=== PATIENT | female | born 2000 | race Hispanic/Latino ===

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

== ENCOUNTER 2020-08-09 15:18 | Emergency (ER) | payer SELFPAY ==
[~2020-08-09] VITALS: Ht 157.5 cm; Wt 59.9 kg
[~2020-08-09 15:18] MED LIST: TRINESSA1 EACH PO
--- OUTSIDE RECORDS SUMMARY | 2020-08-09 16:06 | XMS REPORT | Continuity of Care Document ---
Author Author [facility] Organization [facility] Address [address] [place] [id number] Phone Unavailable Care Team Providers Care [facility] Front Desk Clerk Name Role Phone Unavailable Unavailable Problems Condition Name Condition Details Condition Category Status Onset Date Resolution Date Last Treatment Date Treating Clinician Comments Source Nausea and vomiting Nausea & vomiting Problem Active [facility] Viral infection Viral illness Problem Active [facility] Allergies, Adverse Reactions, Alerts This patient has no known allergies or adverse reactions. Medications Ordered Medication Name Filled Medication Name Start Date Stop Da te Current Medication? Ordering Clinician Indication Dosage Frequency Signature (SIG) Comments Components Source Norgestimate-Ethinyl Estradiol (Trinessa) 1 Each Table t Norgestimate-Ethinyl Estradiol (Trinessa) 1 Each Tablet Yes 1 Yolanda ly [facility] Procedures This patient has no known procedures. Encounters Start Date/Time End Date/Time Encounter Type Admission Type Attendi [facility] Care Department Encounter ID Source 2017-12-27 09:48:00 2017-12-27 12:32:00 Departed Emergency Room [facility] [id number] [facility] Results Test Description Test Time Test Comments Results Result Comments Source Human Chorionic Gonadotropin, Qual 2017-12-27 11:08:00 Test Item Human Chorionic Gonadotropin, Qual (test code = 2118-8) NEGATIVE NEGATIVE [facility] Gyjqs1160-11-99 11:05:00* Test Item Value Reference Range Interpretation Comments Sodium Level (test code = 2951-2) 141 136-145 [facility] Hwpic7362-81-70 11:05:00* Test Item Value Reference Range Interpretation Comments Potassium Level (test code = 2823-3) 3.9 3.5-5.1 [facility]Chloride Odwku0904-30-07 11:05:00* Test Item Value Reference Range Interpretation Comments Chloride Level (test code = 2075-0) 109 98-107 H [facility] HospitalCarbon Dioxide Ctkkk8519-07-42 11:05:00* Test Item Value Reference Range Interpretation Comments Carbon Dioxide Level (test code = 2028-9) 23 22-29 [facility] HospitalAnion Pvr9982-80-24 11:05:00* Test Item Value Reference Range Interpretation Comments Anion Gap (test code = 67855-0) 12.9 8-16 [facility] Urea Ewozkgjv8219-20-84 11:05:00* Test Item Value Reference Range Interpretation Comments Blood Urea Nitrogen (test code = 3094-0) 14 7-26 [facility] HospitalCreatinine2018-01-30 11:05:00* Test Item Value Reference Range Interpretation Comments Creatinine (test code = 2160-0) 0.69 0.57-1.11 [facility]BUN/Creatinine Ucfii7091-70-97 11:05:00* Test Item Value Reference Range Interpretation Comments BUN/Creatinine Ratio (test code = 3097-3) 20 6-25 [facility] HospitalEstimat Glomerular Filtration Rate 2017-12-27 11:05:00* Test Item Value Reference Range Interpretation Comments Estimat Glomerular Filtration Rate (test code = 27126-5) 60- >60 Ranges were taken from the National Kidney Disease Education Program and the [facility] literature.Reference ranges:60 or greater: Zajuoo32-00 ( for 3 consecutive months): Chronic kidney disease 15 or less: Kidney failureMethodist McKinney HospitalGlucose Oiaqs4782-43-01 11:05:00* Test Item Value Reference Range Interpretation Comments Glucose Level (test code = TIS6730) 82 74-118 [facility] HospitalCalcium Kesbp5986-78-54 11:05:00* Test Item Value Reference Range Interpretation Comments Calcium Level (test code = 74030-9) 9.0 8.4-10.2 [facility] HospitalTotal Hfvsvrhjm2598-52-62 11:05:00* Test Item Value Reference Range Interpretation Comments Total Bilirubin (test code = 1975-2) 0.4 0.2-1.2 [facility] HospitalAspartate Amino Transf (AST/SGOT) 2017-12-27 11:05:00* Test Item Value Reference Range Interpretation Comments Aspartate Amino Transf (AST/SGOT) (test code = Aspartate Amino Transf (AST/SGOT)) 17 5-34 [facility] HospitalAlanine Aminotransferase (ALT/SGPT) 2017-12-27 11:05:00* Test Item Value Reference Range Interpretation Comments Alanine Aminotransferase (ALT/SGPT) (test code = 1742-6) 9 0-55 [facility] HospitalTotal Ddkiyjs7930-63-53 11:05:00* Test Item Value Reference Range Interpretation Comments Total Protein (test code = 2885-2) 7.7 6.5-8.1 [facility] HospitalAlbumin2018-01-30 11:05:00* Test Item Value Reference Range Interpretation Comments Albumin (test code = 1751-7) 4.2 3.5-5.0 [facility] HospitalGlobulin2018-01-30 11:05:00* Test Item Value Reference Range Interpretation Comments Globulin (test code = 16976-5) 3.5 2.3-3.5 [facility] HospitalAlbumin/Globulin Cbxpj1956-99-05 11:05:00 * Test Item Value Reference Range Interpretation Comments Albumin/Globulin Ratio (test code = 1759-0) 1.2 0.8-2.0 [facility] HospitalAlkaline Urszdoxwdtm4531-13-70 11:05:00* Test Item Value Reference Range Interpretation Comments Alkaline Phosphatase (test code = 6768-6) 58 40-150 [facility] HospitalWhite Blood Yylnd1773-33-09 10:44:00* Test Item Value Reference Range Interpretation Comments White Blood Count (test code = 6690-2) 5.84 4.8-10.8 [facility] HospitalRed Blood Uesul9573-09-35 10:44:00* Test Item Value Reference Range Interpretation Comments Red Blood Count (test code = 789-8) 4.18 3.6-5.1 [facility] HospitalHemoglobin2018-01-30 10:44:00* Test Item Value Reference Range Interpretation Comments Hemoglobin (test code = 09798-0) 13.1 12.0-16.0 [facility] HospitalHematocrit2018-01-30 10:44:00* Test Item Value Reference Range Interpretation Comments Hematocrit (test code = 4544-3) 39.2 34.2-44.1 [facility] HospitalMean Corpuscular Ebatfn3966-00-44 10:44:00* Test Item Value Reference Range Interpretation Comments Mean Corpuscular Volume (test code = 787-2) 93.8 81-99 [facility] HospitalMean Corpuscular Ipvhqxhwgv5480-17-93 10:44:00* Test Item Value Reference Range Interpretation Comments Mean Corpuscular Hemoglobin (test code = 785-6) 31.3 28-32 [facility] HospitalMean Corpuscular Hemoglobin Concent 2017-12-27 10:44:00* Test Item Value Reference Range Interpretation Comments Mean Corpuscular Hemoglobin Concent (test code = 786-4) 33.4 31-35 [facility] HospitalRed Cell Distribution Inapb2520-93-78 10:44:00* Test Item Value Reference Range Interpretation Comments Red Cell Distribution Width (test code = 26207-8) 12.0 11.7 -14.4 [facility] HospitalPlatelet Ahvlc5628-33-04 10:44:00* Test Item Value Reference Range Interpretation Comments Platelet Count (test code = 777-3) 253 140-360 [facility] HospitalNeutrophils (%) (Auto)2017-12-27 10:44:00 * Test Item Value Reference Range Interpretation Comments Neutrophils (%) (Auto) (test code = 81959-0) 64.5 38.7-80.0 [facility] HospitalLymphocytes (%) (Auto)2017-12-27 10:44:00 * Test Item Value Reference Range Interpretation Comments Lymphocytes (%) (Auto) (test code = 736-9) 28.4 18.0-39.1 [facility] HospitalMonocytes (%) (Auto)2017-12-27 10:44:00* Test Item Value Reference Range Interpretation Comments Monocytes (%) (Auto) (test code = 5905-5) 5.5 4.4-11.3 [facility] HospitalEosinophils (%) (Auto)2017-12-27 10:44:00 * Test Item Value Reference Range Interpretation Comments Eosinophils (%) (Auto) (test code = 713-8) 1.0 0.0-6.0 [facility] HospitalBasophils (%) (Auto)2017-12-27 10:44:00* Test Item Value Reference Range Interpretation Comments Basophils (%) (Auto) (test code = 706-2) 0.3 0.0-1.0 [facility] HospitalIM GRANULOCYTES %2017-12-27 10:44:00* Test Item Value Reference Range Interpretation Comments IM GRANULOCYTES % (test code = IM GRANULOCYTES %) 0.3 0.0- 1.0 [facility] HospitalNeutrophils # (Auto)2017-12-27 10:44:00* Test Item Value Reference Range Interpretation Comments Neutrophils # (Auto) (test code = 751-8) 3.8 2.1-6.9 [facility] HospitalLymphocytes # (Auto)2017-12-27 10:44:00* Test Item Value Reference Range Interpretation Comments Lymphocytes # (Auto) (test code = 46454-2) 1.7 1.0-3.2 [facility] HospitalMonocytes # (Auto)2017-12-27 10:44:00* Test Item Value Reference Range Interpretation Comments Monocytes # (Auto) (test code = 742-7) 0.3 0.2-0.8 [facility] HospitalEosinophils # (Auto)2017-12-27 10:44:00* Test Item Value Reference Range Interpretation Comments Eosinophils # (Auto) (test code = 711-2) 0.1 0.0-0.4 [facility] HospitalBasophils # (Auto)2017-12-27 10:44:00* Test Item Value Reference Range Interpretation Comments Basophils # (Auto) (test code = 704-7) 0.0 0.0-0.1 [facility] HospitalAbsolute Immature Granulocyte (auto 2017-12-27 10:44:00* Test Item Value Reference Range Interpretation Comments Absolute Immature Granulocyte (auto (anthony t code = Absolute Immature Granulocyte (auto) 0.02 0-0.1 [facility] HospitalUrine [id number] 10:40:00* Test Item Value Reference Range Interpretation Comments Urine WBC (test code = 5821-4) 0-5 0-5 [facility] HospitalUrine XEN7618-07-24 10:40:00* Test Item Value Reference Range Interpretation Comments Urine RBC (test code = 08296-2) 0-5 0-5 [facility] HospitalUrine Kefvzxht5593-05-30 10:40:00* Test Item Value Reference Range Interpretation Comments Urine Bacteria (test code = 17409-1) MODERATE NONE H [facility] HospitalUrine Epithelial Fzboe0473-77-29 10:40:00 * Test Item Value Reference Range Interpretation Comments Urine Epithelial Cells (test code = 19930-5) FEW NONE [facility] HospitalUrine Klsyc0729-11-47 10:38:00* Test Item Value Reference Range Interpretation Comments Urine Color (test code = 5778-6) YELLOW YELLOW [facility] HospitalUrine Injpmnn3417-93-14 10:38:00* Test Item Value Reference Range Interpretation Comments Urine Clarity (test code = 61018-2) HAZY CLEAR [facility] HospitalUrine Specific Blinfxr1533-53-42 10:38:00 * Test Item Value Reference Range Interpretation Comments Urine Specific [place] (test code = 5811-5) 1.020 1.010-1.02 5 [facility] HospitalUrine [id number] 10:38:00* Test Item Value Reference Range Interpretation Comments Urine pH (test code = 14077-4) 6.5 5-7 [facility] Leukocyte Czpbgmst1504-82-18 10:38:00* Test Item Value Reference Range Interpretation Comments Urine Leukocyte Esterase (test code = 5799-2) TRACE NEGATIVE H [facility] HospitalUrine Ezatyyv1409-02-82 10:38:00* Test Item Value Reference Range Interpretation Comments Urine Nitrite (test code = 98117-5) NEGATIVE NEGATIVE [facility] HospitalUrine Aajfhvm1867-37-86 10:38:00* Test Item Value Reference Range Interpretation Comments Urine Protein (test code = 5804-0) NEGATIVE NEGATIVE [facility] HospitalUrine Glucose (UA)2017-12-27 10:38:00* Test Item Value Reference Range Interpretation Comments Urine Glucose (UA) (test code = 2349-9) NEGATIVE NEGATIVE [facility] HospitalUrine Ngtrkuq2154-42-18 10:38:00* Test Item Value Reference Range Interpretation Comments Urine Ketones (test code = 42298-2) NEGATIVE NEGATIVE [facility] HospitalUrine Etteaehtouww1612-38-90 10:38:00* Test Item Value Reference Range Interpretation Comments Urine Urobilinogen (test code = 90419-2) 0.2 0.2-1 [facility] HospitalUrine Ychuqfhht9881-42-78 10:38:00* Test Item Value Reference Range Interpretation Comments Urine Bilirubin (test code = 1978-6) NEGATIVE NEGATIVE [facility] HospitalUrine Hpyxt1062-09-76 10:38:00* Test Item Value Reference Range Interpretation Comments Urine Blood (test code = 01541-2) TRACE NEGATIVE H [facility]
--- NOTE | 2020-08-09 16:11 | Emergency Department Note ---
History of Present Illnes History of Present Illness Chief Complaint: Genitourinary History of Present Illness This is a 19 year old female that comes in here for 5-6 day history of left-sided flank pain with hematuria . No dysuria, no polyuria. Patient otherwise with urgency and pain that is moderate to severe in nature. Worse with palpation and range of motion of her spine. Denies any trauma. Patient N, no vomiting. Last menstrual period last week. Historian: Patient Arrival Mode: Car Onset (how long ago): day(s) (5) Location: L flank Quality: ache Radiation: Reports back Severity: moderate Onset quality: gradual Duration (how long): day(s) (5) Progression: worsening Relieving factors: none Exacerbating factors: movement Past Medical/Family History Physician Review I have reviewed the patient's past medical and family history. Any updates have been documented here. Past Medical History Recent Fever: Yes Clinical Suspicion of Infectio: Yes New/Unexplained Change in Ment: No Past Medical History: None Past Surgical History: None Other Last Tetanus: UTD Review of Systems Review of Systems Constitutional: Reports no symptoms EENTM: Reports no symptoms Cardiovascular: Reports no symptoms Respiratory: Reports no symptoms Gastrointestinal: Reports no symptoms Genitourinary: Reports as per HPI Musculoskeletal: Reports as per HPI Integumentary: Reports no symptoms Neurological: Reports no symptoms Psychological: Reports no symptoms Endocrine: Reports no symptoms Hematological/Lymphatic: Reports no symptoms Physical Exam Related Data Allergies: Coded Allergies: No Known Allergies (Unverified , 12/27/17) Triage Vital Signs Vital Signs Date Time Temp Pulse Resp B/P (MAP) Pulse Ox O2 Delivery O2 Flow Rate FiO2 08/09/20 15:40 100.6 97 20 132/104 100 Room Air Physical Exam CONSTITUTIONAL Constitutional: Present well-developed, Present well-nourished HENT HENT: Present normocephalic, Present atraumatic, Present oropharynx clear/moist, Present nose normal HENT L/R: Present left ext ear normal, Present right ext ear normal EYES Eyes: Reports PERRL, Reports conjunctivae normal NECK Neck: Present ROM normal PULMONARY Pulmonary: Present effort normal, Present breath sounds normal CARDIOVASCULAR Cardiovascular: Present regular rhythm, Present heart sounds normal, Present capillary refill normal, Present normal rate GASTROINTESTINAL Abdominal: Present soft, Present nontender, Present bowel sounds normal GENITOURINARY Genitourinary: Present exam deferred SKIN Skin: Present warm, Present dry MUSCULOSKELETAL Musculoskeletal: Present ROM normal, Present other (TTP L lumbar paravertebral musculature) NEUROLOGICAL Neurological: Present alert, Present oriented x 3, Present no gross motor or sensory deficits PSYCHOLOGICAL Psychological: Present mood/affect normal, Present judgement normal Assessment & Plan Medical Decision Making MDM Pt is a 19-year-old female that has a history of flank pain, now with hematuria. We'll rule out renal colic, pyelonephritis, infected stone. We'll send labs urine and a urine culture. Last Vital Signs Date Time Temp Pulse Resp B/P (MAP) Pulse Ox O2 Delivery O2 Flow Rate FiO2 08/09/20 15:40 100.6 97 20 132/104 100 Room Air Home Meds Reported Medications Norgestimate-Ethinyl Estradiol (TRINESSA) 1 Each Tablet, 1 CAP PO DAILY 12/27/17 ROSE MCKINNEY MD Aug 09, 2020 16:11
[2020-08-09] MEDS ORDERED: ACETAMINOPHEN 325 MG TAB PO ONE (16:15)
[2020-08-09] MEDS ORDERED: KETOROLAC TROMETHAMINE 30 MG/ML VIAL IV ONE (16:15)
[2020-08-09 16:19] LABS: BASOPHILS % 0.2 % (0.0-1.0); EOSINOPHILS % 0.1 % (0.0-6.0); HEMATOCRIT 39.7 % (34.2-44.1); HEMOGLOBIN 13.2 g/dL (12.0-16.0); LYMPHOCYTES % 10.8 % (18.0-39.1); MEAN CORPUSCULAR HEMOGLOBIN 30.2 pg (28-32); MEAN CORPUSCULAR HGB CONC 33.2 g/dL (31-35); MEAN CORPUSCULAR VOLUME 90.8 fL (81-99); MONOCYTES # (AUTO) 0.7 (0.2-0.8); MONOCYTES % 7.4 % (4.4-11.3); NEUTROPHILS # (AUTO) 7.6 (2.1-6.9); NEUTROPHILS % 81.3 % (38.7-80.0); PLATELET COUNT 249 x10e3/uL (140-360); RED BLOOD COUNT 4.37 x10e6/uL (3.6-5.1); RED CELL DISTRIBUTION WIDTH 11.6 % (11.7-14.4)
[2020-08-09 16:41] LABS: ALANINE AMINOTRANSFERASE 10 IU/L (0-55); ALBUMIN 5.1 g/dL (3.5-5.0); ALBUMIN/GLOBULIN RATIO 1.6 (0.8-2.0); ALKALINE PHOSPHATASE 62 IU/L (40-150); ANION GAP 20.4 mmol/L (8-16); BLOOD UREA NITROGEN 8 mg/dL (7-26); BUN/CREATININE RATIO 11 (6-25); CALCIUM 9.2 mg/dL (8.4-10.2); CARBON DIOXIDE 18 mmol/L (22-29); CHLORIDE 106 mmol/L (98-107); CREATININE, SERUM 0.76 mg/dL (0.57-1.11); EST GLOMERULAR FILTRATION RATE > 60 ML/MIN (60-); GLUCOSE 78 mg/dL (74-118); POTASSIUM 3.4 mmol/L (3.5-5.1); SODIUM 141 mmol/L (136-145)
[2020-08-09 16:50] LABS: CLARITY,URINE CLOUDY (CLEAR); COLOR,URINE YELLOW (YELLOW); PREGNANCY TEST, URINE NEGATIVE (NEGATIVE)
[2020-08-09 16:52] LABS: BILIRUBIN,URINE NEGATIVE (NEGATIVE); KETONES,URINE 1+ (NEGATIVE); LEUKOCYTE ESTERASE ,URINE 1+ (NEGATIVE); NITRITE,URINE NEGATIVE (NEGATIVE); PROTEIN,URINE DIPSTICK 1+ (NEGATIVE); URINE UROBILINOGEN 0.2 mg/dL (0.2 - 1)
[2020-08-09 17:05] LABS: WBC,URINE (MAN) >50 /HPF (0-5)
[2020-08-09 17:06] LABS: BACTERIA,URINE MANY /HPF; EPITHELIAL CELLS,URINE FEW /LPF; RBC,URINE 21-50 /HPF (0-5); YEAST,URINE FEW
[2020-08-09] MEDS ORDERED: CIPROFLOXACIN 500 MG TAB PO STA (18:09)
--- NOTE | 2020-08-09 18:17 | Diagnostic Imaging Report ---
EXAM: CT Abdomen and Pelvis WITHOUT contrast INDICATION: Left flank pain. COMPARISON: None. TECHNIQUE: Abdomen and pelvis were scanned utilizing a multidetector helical scanner from the lung base to the pubic symphysis without administration of IV contrast. Absence of intravenous contrast decreases sensitivity for detection of focal lesions and vascular pathology. Coronal and sagittal reformations were obtained. Routine protocol was performed. IV CONTRAST: None ORAL CONTRAST: None COMPLICATIONS: None RADIATION DOSE: Total DLP: 299.57 mGy*cm Estimated effective dose: (DLP x 0.015 x size factor) mSv CTDIvol has been reviewed. It is below the limits set by the Radiation Protocol Committee (RPC). Dose modulation, iterative reconstruction, and/or weight based adjustment of the mA/kV was utilized to reduce the radiation dose to as low as reasonably achievable. FINDINGS: LINES and TUBES: None. LOWER THORAX: Unremarkable HEPATOBILIARY: No focal hepatic lesions. No biliary ductal dilation. GALLBLADDER: No radio-opaque stones or sludge. No wall thickening. SPLEEN: No splenomegaly. PANCREAS: No focal masses or ductal dilatation. ADRENALS: No adrenal nodules KIDNEYS/URETERS: No hydronephrosis. No cystic or solid mass lesions. No stones. GI TRACT: No abnormal distention, wall thickening, or evidence of bowel obstruction. Appendix is normal. PELVIC ORGANS/BLADDER: Unremarkable. LYMPH NODES: No lymphadenopathy. VESSELS: Unremarkable. PERITONEUM / RETROPERITONEUM: No free air or fluid. BONES: Unremarkable. SOFT TISSUES: Unremarkable. IMPRESSION: No acute abdominopelvic abnormality identified. Specifically, no obstructive renal or ureteral stones bilaterally. Signed by: Tone Adams MD on 08/09/2020 6:13 PM
== END 2020-08-09 19:01 | disposition home or self-care (01) ==
LOC: ER 15:48
DX: M54.5 Low back pain (principal); R31.9 Hematuria, unspecified
CPT/HCPCS: 36415; 74176; 80053; 81001; 81025; 83605; 85025; 87086; 87186; 99284; J1885

== ENCOUNTER 2020-08-10 08:00 | Emergency (ER) | payer SELFPAY ==
[~2020-08-10] VITALS: Ht 157.5 cm; Wt 59.9 kg
--- OUTSIDE RECORDS SUMMARY | 2020-08-10 08:17 | XMS REPORT | Continuity of Care Document ---
Author Author [facility] t Organization [facility] Address [facility] [address] [place] [address] Phone Unavailable Care Team Providers Care Chief Clerk Name Role Phone NO, PCP PCP Unavailable FRANCIS GOMES Unavailable Problems Condition Name Condition Details Condition Category Status Onset Date Resolution Date Last Treatment Date Treating Clinician Comments Source Nausea and vomiting Nausea & vomiting Problem Active [facility] Viral infection Viral illness Problem [facility] Allergies, Adverse Reactions, Alerts This patient has no known allergies or adverse reactions. Social History Social Habit Start Date Stop Date Quantity Comments Source Sex Assigned At 2000 00:00:00 2000 00:00:00 Female [facility] Medications Ordered Medication Name Filled Medication Name Start Date Stop Da te Current Medication? Ordering Clinician Indication Dosage Frequency Signature (SIG) Comments Components Source Norgestimate-Ethinyl Estradiol (Trinessa) 1 Each TABLE T Norgestimate-Ethinyl Estradiol (Trinessa) 1 Each TABLET Yes 1 Yolanda ly [facility] Vital Signs Vital Name Observation Time Observation Value Comments Source Weight 2020-08-09 15:40:00 132 [lb_av] [facility] BMI (Body Mass Index) 2020-08-09 15:40:00 24.1 kg/m2 [facility] Procedures Procedure Date / Time Performed Performing Clinician Donnie feldman CT of abdomen and pelvis without contrast 2020-08-09 00:00:00 [facility] Plan of Care Planned Activity Planned Date Details Comments Source Instructions Pyelonephritis [facility] Encounters Start Date/Time End Date/Time Encounter Type Admission Type [facility] Facility Care Department Encounter ID Source 2020-08-09 15:48:00 2020-08-09 19:01:00 Departed Emergency Room 1 FRANCIS GOMES [facility] [id number] [facility] 2017-12-27 09:48:00 2017-12-27 12:32:00 Departed Emergency Room [facility] [id number] [facility] Results Test Description Test Time Test Comments Results Result Comments Source CT ABDOMEN/PELVIS WO 2020-08-09 17:56:00 [facility] [address] [address] Patient Name: EN LEMA MR #: [id number] : 2000 Age/Sex: 19/F Req #: [id number] Adm Physician: Ordered by: ROSE MCKINNEY MD Report #: [id number] Location: ER Room/Bed: Procedure: [id number] CT/CT ABDOMEN/PELVIS WO Exam Date: 08/09/20 Exam Time: 1730 REPORT STATUS: Signed EXAM: CT Abdomen and Pelvis WITHOUT contrast INDICATION: Left flank pain. COMPARISON: None. TECHNIQUE: Abdomen and pelvis were scanned utilizing a multidetector helical scanner from the lung base to the pubic symphysis without administration of IV contrast. Absence of intravenous contrast decreases sensitivity for detection of focal lesions and vascular pathology. Coronal and sagittal reformations were obtained. Routine protocol was performed. IV CONTRAST: None ORAL CONTRAST: None COMPLICATIONS: None RADIATION DOSE: Total DLP: 299.57 mGy*cm Estimated effective dose: (DLP x 0.015 x size factor) mSv CTDIvol has been reviewed. It is below the limits set by the Radiation Protocol Committee (RPC). Dose modulation, iterative reconstruction, and/or weight based adjustment of the mA/kV was utilized to reduce the radiation dose to as low as reasonably achievable. FINDINGS: LINES and TUBES: None. LOWER THORAX: Unremarkable HEPATOBILIARY: No focal hepatic lesions. No biliary ductal dilation. GALLBLADDER: No radio-opaque stones or sludge. No wall thickening. SPLEEN: No splenomegaly. PANCREAS: No focal masses or ductal dilatation. ADREN ALS: No adrenal nodules KIDNEYS/URETERS: No hydronephrosis. No cystic or solid mass lesions. No stones. GI TRACT: No abnormal distention, wall thickening, or evidence of bowel obstruction. Appendix is normal. PELVIC ORGANS/BLADDER: Unremarkable. LYMPH NODES: No lymphadenopathy. VESSELS: Unremarkable. PERITONEUM / RETROPERITONEUM: No free air or fluid. BONES: Unremarkable. SOFT TISSUES: Unremarkable. IMPRESSION: No acute abdominopelvic abnormality identified. Specifically, no obstructive renal or ureteral stones bilaterally. Signed by: Gloria Cartagena MD on 08/09/2020 6:13 PM Dictated By: GLORIA CARTAGENA MD 12 Transcribed By: WINSTON on 08/09/201812 COPY TO: ROSE MCKINNEY MD Fluoroscopic procedure less than one hour duration 2020-07-29 2 16:10:00 Test Item Lactic Acid Level (test code = Lactic Acid Level) 1.4 0.5- 2.0 [facility] leukocytes automated count (number/volume)2020-08-09 15:57:00* Test Item Value Reference Range Interpretation Comments White Blood Count (test code = 6690-2) 9.34 4.8-10.8 [facility] CenterBlood erythrocytes automated count (number/volume)2020-08-09 15:57:00* Test Item Value Reference Range Interpretation Comments Red Blood Count (test code = 789-8) 4.37 3.6-5.1 [facility] CenterBlood hemoglobin measurement (moles/volume)2020-08-09 15:57:00* Test Item Value Reference Range Interpretation Comments Hemoglobin (test code = 09652-7) 13.2 12.0-16.0 [facility] CenterAutomated blood hematocrit (volume fraction)2020-08-09 15:57:00* Test Item Value Reference Range Interpretation Comments Hematocrit (test code = 4544-3) 39.7 34.2-44.1 [facility] CenterAutomated erythrocyte mean corpuscular csfdmg0111-80-78 15:57:00* Test Item Value Reference Range Interpretation Comments Mean Corpuscular Volume (test code = 787-2) 90.8 81-99 [facility] CenterAutomated erythrocyte mean corpuscular hemoglobin (mass per erythrocyte)2020-08-09 15:57:00* Test Item Value Reference Range Interpretation Comments Mean Corpuscular Hemoglobin (test code = 785-6) 30.2 28-32 [facility] CenterAutomated erythrocyte mean corpuscular hemoglobin concentration measurement (mass/volume)2020-08-09 15:57:00* Test Item Value Reference Range Interpretation Comments Mean Corpuscular Hemoglobin Concent (test code = 786-4) 33.2 31-35 [facility] CenterRDW SpwVu-Jrf2636-18-12 15:57:00* Test Item Value Reference Range Interpretation Comments Red Cell Distribution Width (test code = 77186-9) 11.6 11.7 -14.4 [facility] CenterAutomated blood platelet count (count/volume)2020-08-09 15:57:00* Test Item Value Reference Range Interpretation Comments Platelet Count (test code = 777-3) 249 140-360 [facility] CenterAutcommunity healthed blood segmented neutrophil count as percentage of total ziocxpugql7687-65-11 15:57:00* Test Item Value Reference Range Interpretation Comments Neutrophils (%) (Auto) (test code = 35732-4) 81.3 38.7-80.0 [facility] CenterAutomated blood lymphocyte count as percentage ot total xspdqjvnft5949-61-72 15:57:00* Test Item Value Reference Range Interpretation Comments Lymphocytes (%) (Auto) (test code = 736-9) 10.8 18.0-39.1 [facility] CenterAutomated blood monocyte count as percentage of total ayxqcsyvef0275-97-95 15:57:00* Test Item Value Reference Range Interpretation Comments Monocytes (%) (Auto) (test code = 5905-5) 7.4 4.4-11.3 [facility] CenterAutomated blood eosinophil count as percentage of total jlkzvwymkp0151-24-77 15:57:00* Test Item Value Reference Range Interpretation Comments Eosinophils (%) (Auto) (test code = 713-8) 0.1 0.0-6.0 [facility] CenterAutomated blood basophil count as percentage of total sigotirray8169-52-37 15:57:00* Test Item Value Reference Range Interpretation Comments Basophils (%) (Auto) (test code = 706-2) 0.2 0.0-1.0 [facility] CenterFluoroscopic procedure less than one hour trdvcvlu0832-29-44 15:57:00* Test Item Value Reference Range Interpretation Comments IM GRANULOCYTES % (test code = IM GRANULOCYTES %) 0.2 0.0- 1.0 [facility] CenterAutomated blood neutrophil count 2020-08-09 15:57:00* Test Item Value Reference Range Interpretation Comments Neutrophils # (Auto) (test code = 751-8) 7.6 2.1-6.9 [facility] CenterBlood lymphocytes count (number/volume) 2020-08-09 15:57:00* Test Item Value Reference Range Interpretation Comments Lymphocytes # (Auto) (test code = 98422-4) 1.0 1.0-3.2 [facility] CenterBlood monocytes automated count (number/volume)2020-08-09 15:57:00* Test Item Value Reference Range Interpretation Comments Monocytes # (Auto) (test code = 742-7) 0.7 0.2-0.8 [facility] CenterAutomated blood eosinophil count 2020-08-09 15:57:00* Test Item Value Reference Range Interpretation Comments Eosinophils # (Auto) (test code = 711-2) 0.0 0.0-0.4 [facility] CenterAutomated blood basophil count (count/volume)2020-08-09 15:57:00* Test Item Value Reference Range Interpretation Comments Basophils # (Auto) (test code = 704-7) 0.0 0.0-0.1 [facility] CenterFluoroscopic procedure less than one hour fmuudvfy2810-07-65 15:57:00* Test Item Value Reference Range Interpretation Comments Absolute Immature Granulocyte (auto (anthony t code = Absolute Immature Granulocyte (auto) 0.02 0-0.1 [facility] plasma sodium measurement (moles/volume)2020-08-09 15:57:00* Test Item Value Reference Range Interpretation Comments Sodium Level (test code = 2951-2) 141 136-145 [facility] Hospitalerum or plasma potassium measurement (moles/volume)2020-08-09 15:57:00* Test Item Value Reference Range Interpretation Comments Potassium Level (test code = 2823-3) 3.4 3.5-5.1 [facility] Hospitalerum or plasma chloride measurement (moles/volume)2020-08-09 15:57:00* Test Item Value Reference Range Interpretation Comments Chloride Level (test code = 2075-0) 106 98-107 [facility] Hospitalerum or plasma carbon dioxide, total measurement (moles/volume)2020-08-09 15:57:00* Test Item Value Reference Range Interpretation Comments Carbon Dioxide Level (test code = 2028-9) 18 22-29 [facility] Hospitalerum or plasma anion zxg2112-80-12 15:57:00* Test Item Value Reference Range Interpretation Comments Anion Gap (test code = 39320-9) 20.4 8-16 [facility] Hospitalerum or plasma urea nitrogen measurement (mass/volume)2020-08-09 15:57:00* Test Item Value Reference Range Interpretation Comments Blood Urea Nitrogen (test code = 3094-0) 8 7-26 [facility] Hospitalerum or plasma creatinine measurement (mass/volume)2020-08-09 15:57:00* Test Item Value Reference Range Interpretation Comments Creatinine (test code = 2160-0) 0.76 0.57-1.11 [facility] Hospitalerum or plasma urea nitrogen/creatinine mass hxlyb0057-44-16 15:57:00* Test Item Value Reference Range Interpretation Comments BUN/Creatinine Ratio (test code = 3097-3) 11 6-25 [facility] CenterEstimated glomerular filtration rate (GFR) tbmjbxbglevmi9099-32-05 15:57:00* Test Item Value Reference Range Interpretation Comments Estimat Glomerular Filtration Rate (test code = 908143756) > 60 >60 Ranges were taken from the National Kidney Disease Education Program and the [facility] literature.Reference ranges:60 or greater: Xhsiuf47-73 ( for 3 consecutive months): Chronic kidney disease 15 or less: Kidney failureDell Children's Medical CenterGlucose fxbzrzaarvg9928-33-23 15:57:00* Test Item Value Reference Range Interpretation Comments Glucose Level (test code = AWP3748) 78 74-118 [facility] Hospitalerum or plasma calcium measurement (mass/volume)2020-08-09 15:57:00* Test Item Value Reference Range Interpretation Comments Calcium Level (test code = 69974-6) 9.2 8.4-10.2 [facility] Hospitalerum or plasma total bilirubin measurement (mass/volume)2020-08-09 15:57:00* Test Item Value Reference Range Interpretation Comments Total Bilirubin (test code = 1975-2) 0.9 0.2-1.2 [facility] CenterFluoroscopic procedure less than one hour pjklmoav4091-27-22 15:57:00* Test Item Value Reference Range Interpretation Comments Aspartate Amino Transf (AST/SGOT) (test code = Aspartate Amino Transf (AST/SGOT)) 16 5-34 [facility] Hospitalerum or plasma alanine aminotransferase measurement (enzymatic activity/volume)2020-08-09 15:57:00* Test Item Value Reference Range Interpretation Comments Alanine Aminotransferase (ALT/SGPT) (test code = 1742-6) 10 0-55 [facility] Hospitalerum or plasma protein measurement (mass/volume)2020-08-09 15:57:00* Test Item Value Reference Range Interpretation Comments Total Protein (test code = 2885-2) 8.3 6.5-8.1 [facility] Hospitalerum or plasma albumin measurement (mass/volume)2020-08-09 15:57:00* Test Item Value Reference Range Interpretation Comments Albumin (test code = 1751-7) 5.1 3.5-5.0 [facility] CenterPlasma globulin measurement (mass/volume) 2020-08-09 15:57:00* Test Item Value Reference Range Interpretation Comments Globulin (test code = 62117-2) 3.2 2.3-3.5 [facility] Hospitalerum or plasma albumin/globulin mass psnqb8212-54-29 15:57:00* Test Item Value Reference Range Interpretation Comments Albumin/Globulin Ratio (test code = 1759-0) 1.6 0.8-2.0 [facility] Hospitalerum or plasma alkaline phosphatase measurement (enzymatic activity/volume)2020-08-09 15:57:00* Test Item Value Reference Range Interpretation Comments Alkaline Phosphatase (test code = 6768-6) 62 40-150 [facility] CenterUrine color nlelffdsijtnf7529-58-68 15:46:00* Test Item Value Reference Range Interpretation Comments Urine Color (test code = 5778-6) YELLOW YELLOW [facility] CenterUrine dlodsvr8667-09-01 15:46:00* Test Item Value Reference Range Interpretation Comments Urine Clarity (test code = 97529-4) CLOUDY CLEAR [facility] Hospitalpecific gravity of Urine by Test strip 2020-08-09 15:46:00* Test Item Value Reference Range Interpretation Comments Urine Specific [place] (test code = 5811-5) 1.025 1.010-1.02 5 [facility] CenterUrine pH measurement by automated test pmctv6565-62-23 15:46:00* Test Item Value Reference Range Interpretation Comments Urine pH (test code = 48636-9) 5.5 5-7 [facility] CenterUrine leukocyte esterase detection by dlifnkrl0900-43-64 15:46:00* Test Item Value Reference Range Interpretation Comments Urine Leukocyte Esterase (test code = 5799-2) 1+ NEGATIVE [facility] CenterUrine nitrite ddckmszmd6738-08-88 15:46:00* Test Item Value Reference Range Interpretation Comments Urine Nitrite (test code = 05003-2) NEGATIVE NEGATIVE [facility] CenterUrine protein measurement by test strip (mass/volume)2020-08-09 15:46:00* Test Item Value Reference Range Interpretation Comments Urine Protein (test code = 5804-0) 1+ NEGATIVE [facility] CenterUrine glucose osgvzmcyb6314-08-28 15:46:00* Test Item Value Reference Range Interpretation Comments Urine Glucose (UA) (test code = 2349-9) NEGATIVE NEGATIVE [facility] CenterUrine ketones detection by automated test hdrqx6732-97-10 15:46:00* Test Item Value Reference Range Interpretation Comments Urine Ketones (test code = 24205-2) 1+ NEGATIVE [facility] CenterUrine urobilinogen measurement by test strip (mass/volume)2020-08-09 15:46:00* Test Item Value Reference Range Interpretation Comments Urine Urobilinogen (test code = 49322-1) 0.2 0.2-1 [facility] CenterUrine total bilirubin measurement (mass/volume)2020-08-09 15:46:00* Test Item Value Reference Range Interpretation Comments Urine Bilirubin (test code = 1978-6) NEGATIVE NEGATIVE [facility] CenterUrine erythrocytes abwbgypru8869-13-45 15:46:00* Test Item Value Reference Range Interpretation Comments Urine Blood (test code = 20687-8) 2+ NEGATIVE [facility] CenterAutomated urine sediment leukocyte count by microscopy (number/high power field)2020-08-09 15:46:00* Test Item Value Reference Range Interpretation Comments Urine WBC (test code = 5821-4) >50 0-5 [facility] CenterErythrocytes detection in urine sediment by light prhppbnwit8235-54-92 15:46:00* Test Item Value Reference Range Interpretation Comments Urine RBC (test code = 90527-2) 21-50 0-5 [facility] CenterBacteria detection in urine sediment by light bwdrdovluk8161-07-26 15:46:00* Test Item Value Reference Range Interpretation Comments Urine Bacteria (test code = 98731-6) MANY NONE [facility] CenterEpithelial cells detection in urine sediment by light ptdyklqlyf0394-74-60 15:46:00* Test Item Value Reference Range Interpretation Comments Urine Epithelial Cells (test code = 13677-0) FEW NONE [facility] CenterYeast detection in urine sediment by light aheddgwrrl0467-29-23 15:46:00* Test Item Value Reference Range Interpretation Comments Urine Yeast (test code = 83689-0) FEW NONE [facility] CenterUrine human chorionic gonadotropin (hCG) xqvpztuxq0054-16-71 15:46:00* Test Item Value Reference Range Interpretation Comments Urine Test (test code = 2106-3) NEGATIVE NEGATIVE [facility] CenterHuman Chorionic Gonadotropin, Qual 2017-12-27 11:08:00* Test Item Value Reference Range Interpretation Comments Human Chorionic Gonadotropin, Qual (test code = 2118-8) NEGATIVE NEGATIVE [facility] Hospitalodium Itnge6958-09-86 11:05:00* Test Item Value Reference Range Interpretation Comments Sodium Level (test code = 2951-2) 141 136-145 [facility] CenterPotassium Rtluj1085-72-27 11:05:00* Test Item Value Reference Range Interpretation Comments Potassium Level (test code = 2823-3) 3.9 3.5-5.1 [facility] CenterChloride Bxpub4103-99-87 11:05:00* Test Item Value Reference Range Interpretation Comments Chloride Level (test code = 2075-0) 109 98-107 H [facility] CenterCarbon Dioxide Ppukw5851-41-29 11:05:00* Test Item Value Reference Range Interpretation Comments Carbon Dioxide Level (test code = 2028-9) 23 22-29 [facility] CenterAnion Xzy7156-55-28 11:05:00* Test Item Value Reference Range Interpretation Comments Anion Gap (test code = 72014-2) 12.9 8-16 [facility] CenterBlood Urea Nruqwgxa8126-03-23 11:05:00* Test Item Value Reference Range Interpretation Comments Blood Urea Nitrogen (test code = 3094-0) 14 7-26 [facility] CenterCreatinine2018-01-30 11:05:00* Test Item Value Reference Range Interpretation Comments Creatinine (test code = 2160-0) 0.69 0.57-1.11 [facility] CenterBUN/Creatinine Katvp2513-19-54 11:05:00* Test Item Value Reference Range Interpretation Comments BUN/Creatinine Ratio (test code = 3097-3) 20 6-25 [facility] CenterEstimat Glomerular Filtration Rate 2017-12-27 11:05:00* Test Item Value Reference Range Interpretation Comments Estimat Glomerular Filtration Rate (test code = 42858-1) 60- >60 Ranges were taken from the National Kidney Disease Education Program and the [facility] Foundation literature.Reference ranges:60 or greater: Vdmbll96-65 ( for 3 consecutive months): Chronic kidney disease 15 or less: Kidney failureDell Children's Medical CenterGlucose Fixrz8871-10-79 11:05:00* Test Item Value Reference Range Interpretation Comments Glucose Level (test code = HWP5411) 82 74-118 [facility] CenterCalcium Hnycm1556-98-20 11:05:00* Test Item Value Reference Range Interpretation Comments Calcium Level (test code = 31679-7) 9.0 8.4-10.2 [facility] CenterTotal Whxmfpdsn1497-00-86 11:05:00* Test Item Value Reference Range Interpretation Comments Total Bilirubin (test code = 1975-2) 0.4 0.2-1.2 [facility] CenterAspartate Amino Transf (AST/SGOT) 2017-12-27 11:05:00* Test Item Value Reference Range Interpretation Comments Aspartate Amino Transf (AST/SGOT) (test code = Aspartate Amino Transf (AST/SGOT)) 17 5-34 [facility] CenterAlanine Aminotransferase (ALT/SGPT) 2017-12-27 11:05:00* Test Item Value Reference Range Interpretation Comments Alanine Aminotransferase (ALT/SGPT) (test code = 1742-6) 9 0-55 [facility] CenterTotal Hvmtpyx1946-70-80 11:05:00* Test Item Value Reference Range Interpretation Comments Total Protein (test code = 2885-2) 7.7 6.5-8.1 [facility] CenterAlbumin2018-01-30 11:05:00* Test Item Value Reference Range Interpretation Comments Albumin (test code = 1751-7) 4.2 3.5-5.0 [facility] CenterGlobulin2018-01-30 11:05:00* Test Item Value Reference Range Interpretation Comments Globulin (test code = 50062-1) 3.5 2.3-3.5 [facility] CenterAlbumin/Globulin Lqqbc3388-32-03 11:05:00 * Test Item Value Reference Range Interpretation Comments Albumin/Globulin Ratio (test code = 1759-0) 1.2 0.8-2.0 [facility] CenterAlkaline Sfmjpvmbkca5332-27-70 11:05:00* Test Item Value Reference Range Interpretation Comments Alkaline Phosphatase (test code = 6768-6) 58 40-150 [facility] CenterWhite Blood Bakhr3934-30-74 10:44:00* Test Item Value Reference Range Interpretation Comments White Blood Count (test code = 6690-2) 5.84 4.8-10.8 [facility] CenterRed Blood Uaqlx5001-35-30 10:44:00* Test Item Value Reference Range Interpretation Comments Red Blood Count (test code = 789-8) 4.18 3.6-5.1 [facility] CenterHemoglobin2018-01-30 10:44:00* Test Item Value Reference Range Interpretation Comments Hemoglobin (test code = 56427-0) 13.1 12.0-16.0 [facility] CenterHematocrit2018-01-30 10:44:00* Test Item Value Reference Range Interpretation Comments Hematocrit (test code = 4544-3) 39.2 34.2-44.1 [facility] CenterMean Corpuscular Ndnoyt8072-19-54 10:44:00* Test Item Value Reference Range Interpretation Comments Mean Corpuscular Volume (test code = 787-2) 93.8 81-99 [facility] CenterMean Corpuscular Ldkawwevnx1223-99-17 10:44:00* Test Item Value Reference Range Interpretation Comments Mean Corpuscular Hemoglobin (test code = 785-6) 31.3 28-32 [facility] CenterMean Corpuscular Hemoglobin Concent 2017-12-27 10:44:00* Test Item Value Reference Range Interpretation Comments Mean Corpuscular Hemoglobin Concent (test code = 786-4) 33.4 31-35 [facility] CenterRed Cell Distribution Uzcwj9681-61-71 10:44:00* Test Item Value Reference Range Interpretation Comments Red Cell Distribution Width (test code = 74167-4) 12.0 11.7 -14.4 [facility] CenterPlatelet Txkya0544-90-63 10:44:00* Test Item Value Reference Range Interpretation Comments Platelet Count (test code = 777-3) 253 140-360 [facility] CenterNeutrophils (%) (Auto)2017-12-27 10:44:00 * Test Item Value Reference Range Interpretation Comments Neutrophils (%) (Auto) (test code = 39810-4) 64.5 38.7-80.0 [facility] CenterLymphocytes (%) (Auto)2017-12-27 10:44:00 * Test Item Value Reference Range Interpretation Comments Lymphocytes (%) (Auto) (test code = 736-9) 28.4 18.0-39.1 [facility] CenterMonocytes (%) (Auto)2017-12-27 10:44:00* Test Item Value Reference Range Interpretation Comments Monocytes (%) (Auto) (test code = 5905-5) 5.5 4.4-11.3 [facility] CenterEosinophils (%) (Auto)2017-12-27 10:44:00 * Test Item Value Reference Range Interpretation Comments Eosinophils (%) (Auto) (test code = 713-8) 1.0 0.0-6.0 [facility] CenterBasophils (%) (Auto)2017-12-27 10:44:00* Test Item Value Reference Range Interpretation Comments Basophils (%) (Auto) (test code = 706-2) 0.3 0.0-1.0 [facility] CenterIM GRANULOCYTES %2017-12-27 10:44:00* Test Item Value Reference Range Interpretation Comments IM GRANULOCYTES % (test code = IM GRANULOCYTES %) 0.3 0.0- 1.0 [facility] CenterNeutrophils # (Auto)2017-12-27 10:44:00* Test Item Value Reference Range Interpretation Comments Neutrophils # (Auto) (test code = 751-8) 3.8 2.1-6.9 [facility] CenterLymphocytes # (Auto)2017-12-27 10:44:00* Test Item Value Reference Range Interpretation Comments Lymphocytes # (Auto) (test code = 68244-4) 1.7 1.0-3.2 [facility] CenterMonocytes # (Auto)2017-12-27 10:44:00* Test Item Value Reference Range Interpretation Comments Monocytes # (Auto) (test code = 742-7) 0.3 0.2-0.8 [facility]2017-12-27 10:44:00* Test Item Value Reference Range Interpretation Comments Eosinophils # (Auto) (test code = 711-2) 0.1 0.0-0.4 [facility] ([facility])2017-12-27 10:44:00* Test Item Value Reference Range Interpretation Comments Basophils # (Auto) (test code = 704-7) 0.0 0.0-0.1 [facility] Granulocyte (auto 2017-12-27 10:44:00* Test Item Value Reference Range Interpretation Comments Absolute Immature Granulocyte (auto (anthony t code = Absolute Immature Granulocyte (auto) 0.02 0-0.1 [facility] [id number] 10:40:00* Test Item Value Reference Range Interpretation Comments Urine WBC (test code = 5821-4) 0-5 0-5 [facility] [id number] 10:40:00* Test Item Value Reference Range Interpretation Comments Urine RBC (test code = 16286-8) 0-5 0-5 [facility] [id number] 10:40:00* Test Item Value Reference Range Interpretation Comments Urine Bacteria (test code = 35144-3) MODERATE NONE [facility] Epithelial [id number] 10:40:00 * Test Item Value Reference Range Interpretation Comments Urine Epithelial Cells (test code = 12564-6) FEW NONE [facility] [id number] 10:38:00* Test Item Value Reference Range Interpretation Comments Urine Color (test code = 5778-6) YELLOW YELLOW [facility] [id number] 10:38:00* Test Item Value Reference Range Interpretation Comments Urine Clarity (test code = 29465-7) HAZY CLEAR [facility] Specific [id number] 10:38:00 * Test Item Value Reference Range Interpretation Comments Urine Specific [place] (test code = 5811-5) 1.020 1.010-1.02 5 [facility] [id number] 10:38:00* Test Item Value Reference Range Interpretation Comments Urine pH (test code = 24422-1) 6.5 5-7 [facility] Leukocyte [id number] 10:38:00* Test Item Value Reference Range Interpretation Comments Urine Leukocyte Esterase (test code = 5799-2) TRACE NEGATIVE H [facility] [id number] 10:38:00* Test Item Value Reference Range Interpretation Comments Urine Nitrite (test code = 33656-6) NEGATIVE NEGATIVE [facility] [id number] 10:38:00* Test Item Value Reference Range Interpretation Comments Urine Protein (test code = 5804-0) NEGATIVE NEGATIVE [facility] Glucose (UA)2017-12-27 10:38:00* Test Item Value Reference Range Interpretation Comments Urine Glucose (UA) (test code = 2349-9) NEGATIVE NEGATIVE [facility] [id number] 10:38:00* Test Item Value Reference Range Interpretation Comments Urine Ketones (test code = 15152-5) NEGATIVE NEGATIVE [facility] [id number] 10:38:00* Test Item Value Reference Range Interpretation Comments Urine Urobilinogen (test code = 50037-3) 0.2 0.2-1 [facility] [id number] 10:38:00* Test Item Value Reference Range Interpretation Comments Urine Bilirubin (test code = 1978-6) NEGATIVE NEGATIVE [facility] [id number] 10:38:00* Test Item Value Reference Range Interpretation Comments Urine Blood (test code = 96461-8) TRACE NEGATIVE H [facility]
--- NOTE | 2020-08-10 08:22 | Emergency Department Note ---
History of Present Illnes History of Present Illness Chief Complaint: Genitourinary History of Present Illness This is a 19 year old female PATIENT IN FROM HOME WITH COMPLAINTS OF LEFT FLANK PAIN AND BLOOD IN URINE. PATIENT SEEN HERE YESTERDAY FOR SAME, DX WITH A KIDNEY INFECTION. PATIENT STATES THAT SHE WAS UNABLE TO GET HER PRESCRIPTION FILLED, THAT THE PHARMACY STATED THAT IT WOULD NOT BE READY UNTIL 2 PM TODAY. PATIENT GIVEN 1 DOSE OF ORAL ABX YESTERDAY IN THE ER YESTERDAY. PATIENT FEBRILE IN TRIAGE, STATES HAS NOT TAKEN ANY MOTRIN OR TYLENOL. PATIENT ALERT AND ORIENTED, RESP EVEN AND NONLABORED, APPEARS IN NO DISTRESS. CAME BACK TODAY BECAUSE OF FEVER AND NOT FEELING ANY BETTER YET. +NAUSEA, NO VOMITING Historian: Patient Arrival Mode: Car Onset (how long ago): day(s) (6) Location: LEFT FLANK Quality: PAIN Radiation: Reports non-radiation Severity: moderate Onset quality: gradual Timing of current episode: constant Progression: unchanged Chronicity: new Context: Denies recent illness Relieving factors: none Exacerbating factors: none Associated symptoms: Reports fever/chills, Reports malaise, Reports other (NAUSEA) Treatments prior to arrival: none Past Medical/Family History Physician Review I have reviewed the patient's past medical and family history. Any updates have been documented here. Past Medical History Recent Fever: Yes Clinical Suspicion of Infectio: Yes New/Unexplained Change in Ment: No Past Medical History: None Past Surgical History: None Social History Smoking Cessation: Never Smoker Counseling Performed: No Alcohol Use: None Any Illegal Drug Use: No TB Exposure/Symptoms: No Physically hurt or threatened: No Family History Family history of heart diseas: No Other Last Tetanus: UTD Any Pre-Existing Lines (PICC,: No Review of Systems Review of Systems Constitutional: Reports no symptoms EENTM: Reports no symptoms Cardiovascular: Reports no symptoms Respiratory: Reports no symptoms Gastrointestinal: Reports no symptoms Genitourinary: Reports frequency, Reports pain (LEFT FLANK) Musculoskeletal: Reports no symptoms Integumentary: Reports no symptoms Neurological: Reports no symptoms Psychological: Reports no symptoms Endocrine: Reports no symptoms Hematological/Lymphatic: Reports no symptoms Physical Exam Related Data Allergies: Coded Allergies: No Known Allergies (Unverified , 08/10/20) Triage Vital Signs Vital Signs Date Time Temp Pulse Resp B/P (MAP) Pulse Ox O2 Delivery O2 Flow Rate FiO2 08/10/20 08:13 102.2 110 16 117/83 100 Room Air Vital signs reviewed: Yes Physical Exam CONSTITUTIONAL Constitutional: Present well-developed, Present well-nourished; Absent ill appearing HENT HENT: Present normocephalic, Present atraumatic, Present oropharynx clear/moist, Present nose normal HENT L/R: Present left ext ear normal, Present right ext ear normal EYES Eyes: Reports PERRL, Reports conjunctivae normal NECK Neck: Present ROM normal PULMONARY Pulmonary: Present effort normal, Present breath sounds normal CARDIOVASCULAR Cardiovascular: Present regular rhythm, Present heart sounds normal, Present capillary refill normal, Present normal rate GASTROINTESTINAL Abdominal: Present soft, Present nontender, Present bowel sounds normal, Present left CVA tenderness; Absent tender, Absent guarding GENITOURINARY Genitourinary: Present exam deferred SKIN Skin: Present warm, Present dry MUSCULOSKELETAL Musculoskeletal: Present ROM normal NEUROLOGICAL Neurological: Present alert, Present oriented x 3, Present no gross motor or sensory deficits PSYCHOLOGICAL Psychological: Present mood/affect normal, Present judgement normal Assessment & Plan Medical Decision Making MDM I REVIEWED YESTERDAY'S VISIT - LABS ESSENTIALLY NORMAL INCLUDING NL WBC, NL KIDNEY FUNCTION, NORMAL CT ABD/PELVIS WITHOUT STONES. SHE HAD ONE DOSE OF CIPRO HERE IN ED AND SAYS DAVES TOLD HER THE CIPRO RX WOULD NOT BE READY UNTIL 2PM TODAY. WILL GIVE TYLENOL PO, ZOFRAN ODT, AND ROCEPHIN 1 GM IM Reassessment Reassessment DC HOME, TAKE ABX'S PRESCRIBED YESTERDAY, TYLENOL/MOTRIN DIRECTED, ZOFRAN ODT, PUSH PO FLUIDS, F/U PCP, RTED PRN SX'S WORSEN OR VOMITING/UNABLE TO KEEP ABX'S DOWN Assessment & Plan Final Impression: (1) Pyelonephritis Depart Disposition: HOME, SELF-CARE Last Vital Signs Date Time Temp Pulse Resp B/P (MAP) Pulse Ox O2 Delivery O2 Flow Rate FiO2 08/10/20 08:13 102.2 110 16 117/83 100 Room Air Home Meds Reported Medications Norgestimate-Ethinyl Estradiol (TRINESSA) 1 Each Tablet, 1 CAP PO DAILY 12/27/17 Medications in the ED Acetaminophen 975 mg ONCE ONCE PO ; Start 08/10/20 at 08:30; Stop 9/13/20 at 08:31; Status UNV Ondansetron HCl 4 mg ONCE ONCE PO ; Start 08/10/20 at 08:30; Stop 08/10/20 at 08:31; Status UNV Ceftriaxone Sodium 1 gm ONCE ONCE IM ; Start 08/10/20 at 08:30; Stop 08/10/20 at 08:31; Status UNV ZOHAIB CARABALLO MD Aug 10, 2020 08:22
[2020-08-10] MEDS ORDERED: ONDANSETRON HCL 4 MG ORAL DISINTEGRATING TAB ONE (08:32)
[2020-08-10] MEDS ORDERED: LIDOCAINE HCL 1% 2 ML AMP ONE (08:32)
[2020-08-10] MEDS ORDERED: ACETAMINOPHEN 325 MG TAB ONE (08:32)
[2020-08-10] MEDS ORDERED: CEFTRIAXONE SOD 1 GM VIAL ONE (08:33)
[2020-08-10 08:43] VITALS: BP 114/74
[2020-08-10] MEDS ORDERED: CEFTRIAXONE SOD 1 GM VIAL IM ONE (09:00)
[2020-08-10] MEDS ORDERED: ACETAMINOPHEN 325 MG TAB PO ONE (09:00)
[2020-08-10] MEDS ORDERED: ONDANSETRON HCL 4 MG ORAL DISINTEGRATING TAB PO ONE (09:00)
== END 2020-08-10 08:54 | disposition home or self-care (01) ==
LOC: ER 08:15
DX: N12 Tubulo-interstitial nephritis, not specified as acute or chronic (principal); R50.9 Fever, unspecified; M54.5 Low back pain
CPT/HCPCS: 99283; J0696; J2001; Q0162